=== PATIENT | female | born 1945 | race Caucasian/White ===

== ENCOUNTER 2016-08-30 15:05 | Inpatient (IN) | payer MEDICARE, OTHER ==
[~2016-08-30 15:05] MED LIST: CIPRO500 M2 PO; FISH OIL 1,0001 CA PO; FLAGYL500 MG PO; FUROSEMIDE20 M1 PO; LEVAQUIN750 MG PO; LEVOTHYROXINE125 MC1 PO; LIPITOR10 MG PO; MELOXICAM7.5 M1 PO; NORVASC5 MG PO; OMEPRAZOLE20 MG PO; OMEPRAZOLE40 M2 PO; ROBAFEN100 MG/52 PO; SYNTHROID125 MCG PO; TRAMADOL HCL50 M2 PO; TRAMADOL HCL50 MG PO; TRAZODONE HCL50 M1 PO; VENTOLIN HFA18 G2 INH; VITAMIN D50000 UNI1 PO; WELLBUTRIN SR150 M1 PO; WELLBUTRIN XL300 M3 PO; ZOFRAN ODT4 MG PO
[2016-08-30] MEDS ORDERED: CIPRO500 M2 PO (15:38)
[2016-08-30] MEDS ORDERED: ZOFRAN ODT4 MG SL (15:39)
[2016-08-30] MEDS ORDERED: NORVASC10 M2 PO (15:39)
[2016-08-30 15:51] LABS: BASO % 0.4 % (0-2); EOS % 0.9 % (0-7); EOSINOPHIL ABSOLUTE COUNT 0.1 tho/cmm (0.0-0.7); HCT-HEMATOCRIT 42.1 % (34.0-49.0); HGB-HEMOGLOBIN 14.3 gm/dl (12.0-15.5); IMMATURE GRANULOCYTES ABSOLUTE 0.01 tho/cmm (0-0.03); IMMATURE GRANULOCYTES PERCENT 0.1 % (0-0.3); LYMPH % 22.7 % (20-45); LYMPH ABSOLUTE COUNT 1.7 tho/cmm (0.8-4.5); MCH (MEAN CORPUSCULAR HGB) 30.6 pg (28.0-32.0); MCV (MEAN CELL VOLUME) 90.1 fl (82.0-96.0); MEAN PLATELET VOLUME 9.2 cmc (9.4-12.4); MONO % 8.2 % (0-12); MONOCYTE ABSOLUTE COUNT 0.6 tho/cmm (0.0-1.2); NEUTROPHILS % 67.7 % (40-80); PLATELET COUNT 276 tho/cmm (150-450); RED BLOOD COUNT 4.67 mil/cmm (4.00-5.20); RED CELL DISTRIBUTION WIDTH 13.1 % (12.4-16.4); WHITE BLOOD COUNT 7.4 tho/cmm (4.0-10.0)
[2016-08-30 16:11] LABS: ALBUMIN 3.7 g/dl (3.5-5.0); ALKALINE PHOSPHATASE 137 U/L (33-138); ALT/SGPT 56 U/L (12-78); ANION GAP 11 mmol/L (0-20); AST/SGOT 36 U/L (10-40); BILIRUBIN,TOTAL 0.5 mg/dl (0-1.5); BLOOD UREA NITROGEN 11 mg/dl (6-24); CALCIUM 9.1 mg/dl (8.5-10.5); CARBON DIOXIDE-VENOUS 30 mmol/L (22-32); CHLORIDE 105 mmol/l (96-110); CREATININE 1.06 mg/dl (0.50-1.10); GLUCOSE 91 mg/dL (70-110); LIPASE 143 U/L (73-393); POTASSIUM 3.7 mmol/L (3.7-5.1); SODIUM 142 mmol/L (135-145); eGFR VALUE FOR BLACK 62 mL/Min
[2016-08-30 16:29] LABS: URINE BILIRUBIN NEGATIVE (NEG); URINE BLOOD MODERATE (NEG); URINE GLUCOSE (UA) NEGATIVE (NEG); URINE KETONE MODERATE (NEG); URINE LEUKOCYTE ESTERASE POSITIVE (NEG); URINE NITRITE NEGATIVE (NEG); URINE PROTEIN MODERATE (NEG)
[2016-08-30 16:30] LABS: URINE APPEARANCE CLOUDY; URINE COLOR YELLOW
[2016-08-30 16:39] LABS: URINE BACTERIA 2+
[2016-08-31 06:06] LABS: BASO % 0.2 % (0-2); EOS % 0.7 % (0-7); HCT-HEMATOCRIT 38.5 % (34.0-49.0); HGB-HEMOGLOBIN 12.6 gm/dl (12.0-15.5); LYMPH % 22.2 % (20-45); MCH (MEAN CORPUSCULAR HGB) 29.6 pg (28.0-32.0); MCHC MEAN CORPUSCULAR HGB CONC 32.7 % (32.0-36.0); MCV (MEAN CELL VOLUME) 90.6 fl (82.0-96.0); MEAN PLATELET VOLUME 9.2 cmc (9.4-12.4); MONO % 12.5 % (0-12); MONOCYTE ABSOLUTE COUNT 0.6 tho/cmm (0.0-1.2); NEUTROPHIL ABSOLUTE COUNT 2.8 tho/cmm (1.6-8.0); NEUTROPHIL-AUTOMATED 2.8 tho/cmm (1.6-8.0); NEUTROPHILS % 64.4 % (40-80); PLATELET COUNT 232 tho/cmm (150-450); RED BLOOD COUNT 4.25 mil/cmm (4.00-5.20); RED CELL DISTRIBUTION WIDTH 13.3 % (12.4-16.4); WHITE BLOOD COUNT 4.4 tho/cmm (4.0-10.0)
[2016-08-31 06:21] LABS: ALB/GLOB RATIO 0.9 (0.8-2.0); ALBUMIN 2.9 g/dl (3.5-5.0); ANION GAP 12 mmol/L (0-20); BLOOD UREA NITROGEN 6 mg/dl (6-24); CARBON DIOXIDE-VENOUS 26 mmol/L (22-32); CHLORIDE 110 mmol/l (96-110); CREATININE 0.82 mg/dl (0.50-1.10); GLUCOSE 99 mg/dL (70-110); POTASSIUM 3.6 mmol/L (3.7-5.1); SODIUM 144 mmol/L (135-145); eGFR VALUE FOR BLACK 85 mL/Min
[2016-08-31 06:24] LABS: ALKALINE PHOSPHATASE 276 U/L (33-138); ALT/SGPT 371 U/L (12-78); AST/SGOT 431 U/L (10-40); BILIRUBIN,TOTAL 0.8 mg/dl (0-1.5)
[2016-09-03] MEDS ORDERED: STOP HOME MEDICATION (14:28)
== END 2016-09-03 14:50 | DRG 389 ==
LOC: EDMED 15:05 → EMR2 20:27 → 5WD 20:30
PROVIDERS: Emergency Medicine; ADMIT Internal Medicine
PROC: 05HC33Z Insertion of Infusion Device into Left Basilic Vein, Percutaneous Approach (ICD-10-PCS; principal; 2016-08-31)
DX: K56.69 Other intestinal obstruction (principal); Z68.41 Body mass index [BMI] 40.0-44.9, adult; J44.9 Chronic obstructive pulmonary disease, unspecified; N39.0 Urinary tract infection, site not specified; E66.01 Morbid (severe) obesity due to excess calories; I10 Essential (primary) hypertension; E03.9 Hypothyroidism, unspecified; R79.89 Other specified abnormal findings of blood chemistry; K21.9 Gastro-esophageal reflux disease without esophagitis; K57.90 Diverticulosis of intestine, part unspecified, without perforation or abscess without bleeding; E78.5 Hyperlipidemia, unspecified; G47.33 Obstructive sleep apnea (adult) (pediatric); Z90.710 Acquired absence of both cervix and uterus; Z85.3 Personal history of malignant neoplasm of breast; Z90.13 Acquired absence of bilateral breasts and nipples; Z23 Encounter for immunization
CPT/HCPCS: C1751; C9113; G0008; G0009; G8987-GO-CI; G8988-GO-CH; J1956; J2270; J2405; J7030; Q9967